=== PATIENT | male | born 1970 | race African-American/Black ===

== ENCOUNTER 2016-11-22 18:39 | Inpatient (IN) | payer OTHER ==
--- NOTE | ~2016-11-22 | PA ---
Unit #: [id number] #: [id number] Patient: BUCKY CASTRO [id number] [facility] [address] [place] [address] [id number] MR#: [id number] NAME: BUCKY CASTRO ROOM: P256 Age: 46 Sex: M Admission Date: 11/22/2016 : 1970 Date of Assessment: 11/23/2016 Attending Physician: Larry Boswell M.D. Admitting Physician: Larry Boswell M.D. Primary Care Physician: Generic Doctor Not In System PSYCHIATRIC ASSESSMENT DATE OF SERVICE 11/23/2016. INFORMANTS The patient, partially reliable; OLOP, reliable. CHIEF COMPLAINT Overdose. HISTORY OF PRESENT ILLNESS Bucky Castro is a 46-year-old man who [facility] taking an overdose of baclofen and gabapentin. He states that he was extremely out of pain due to back injury and also hit his head. He admitted to "some mild cocaine use." The patient was admitted to the hospital on a 72-hour hold 3 weeks ago after taking an overdose of other medications. He denied that this was a suicide attempt, but admitted feeling dysphoric. [facility] and [facility]. PAST PSYCHIATRIC HISTORY As noted, the patient has one recent admission to [facility] on a 72-hour hold following a polysubstance overdose. He currently is being seen at [facility] and takes Celexa 10 mg daily. FAMILY PSYCHIATRIC HISTORY None reported. SOCIAL HISTORY The patient has been off work for the last year due to back injury and is on disability. He is a high school graduate with some college. He is from his and is an [employer] . PAST MEDICAL HISTORY Significant for back pain, COPD, and hepatitis C. MEDICATIONS Please see MAR. ALLERGIES Morphine. SUBSTANCE ABUSE HISTORY Unit #: [id number] #: [id number] Patient: BUCKY CASTRO The patient admits to occasional cocaine use and maybe indulging overuse of recent medications. MENTAL STATUS EXAMINATION The patient presented as a neatly dressed and groomed man who appeared his stated age. Vital signs were blood pressure 133/82, respirations 18, and pulse 108. His speech was spontaneous and easily understood. Musculoskeletal examination was calm. His mood was irritable with a congruent affect. He was alert and fully oriented. Memory and concentration are intact. Thought processes were logical with no active psychosis. He denied this was a suicide attempt, but did admit to taking the overdose. Insight and judgment, fair. Fund of knowledge and abstraction, fair. ASSETS AND LIABILITIES The patient knows local resources and presents voluntarily for treatment. Liabilities include chronic back pain and disability status. ADMITTING DIAGNOSES AXIS I: Adjustment disorder with depressed mood, Ff3.21; rule out major depressive disorder. AXIS II: No diagnosis. AXIS III: Back pain, chronic obstructive pulmonary disease, hepatitis C. AXIS IV: AXIS V: PSYCHIATRIC PLAN The patient was admitted and placed on suicide precautions. He is agitated for immediate discharge, but was placed on a 72-hour hold in our [facility] due to his 2 recent overdoses. I explained to the patient that he would need to remain in the hospital at least today, but could be eligible for discharge tomorrow if he continues to be free of suicidal thinking. In the meantime, we will increase citalopram to 20 mg daily. Continue his home medications. Treatment goals are resolution of SI, improvement in insight, and improvement in coping skills. DISCHARGE PLANNING Follow up with [facility] or [facility]. ESTIMATED LENGTH OF STAY 5 days. Dictated by... Larry Boswell M.D. Ike/syd TD: 11/24/2016 00:36 JOB #: [id number] Unit #: [id number] #: [id number] Patient: BUCKY CASTRO PSYCHIATRIC ASSESSMENT Page 1 of 1 X Larry Boswell MD PSYCHIATRIC ASSESSMENT
--- NOTE | ~2016-11-22 | DS ---
Unit #: [id number] #: [id number] Patient: BUCKY CASTRO [id number] [facility] [address] [place] [address] [id number] MR#: [id number] NAME: BUCKY CASTRO ROOM: P256 Age: 46 Sex: M Admission Date: 11/22/2016 : 1970 Discharge Date: 11/24/2016 Attending Physician: Larry Boswell M.D. Primary Care Physician: Generic Doctor Not In System DISCHARGE SUMMARY REASON FOR ADMISSION Mr. Castro is a 46-year-old man, who presented after overdose of baclofen and gabapentin and had also been using cocaine. This was a repeat of an incident previously in the month, although he continued to deny that this was a suicide attempt. [facility]. DIAGNOSTIC STUDIES LABORATORY RESULTS: CBC demonstrated high WBCs of 11.0, low hematocrit of 12.8. CMP was within normal limits. Urine drug screen was positive for cocaine. HOSPITAL COURSE Mr. Castro was admitted and placed on suicide precautions. He remained in the hospital with an increase in his citalopram to 20 mg daily and was calm and cooperative with no parasuicidal behaviors or statements. On the date of discharge, he was able to contract for safety. DISCHARGE DIAGNOSES AXIS I: Adjustment disorder with depressed mood, F43.21. AXIS II: No diagnosis. AXIS III: Back pain, chronic obstructive pulmonary disease, hepatitis C. AXIS IV: AXIS V: DISCHARGE INSTRUCTIONS Follow up with primary care physician and with community mental health resources for psychiatric treatment. DISCHARGE MEDICATIONS Celexa 20 mg daily for depression, Cymbalta 30 mg daily for pain and depression, trazodone 100 mg at bedtime as needed for insomnia. CONDITION AT DISCHARGE Improved. PROGNOSIS Fair to good. DIET AND ACTIVITY Per primary care doctor. Unit #: [id number] #: [id number] Patient: BUCKY CASTRO Dictated by... Larry Boswell M.D. [facility]/arunl TD: 12/01/2016 02:01 JOB #: [id number] DISCHARGE SUMMARY Page 1 of 1 X Larry Boswell MD DISCHARGE SUMMARY
--- NOTE | ~2016-11-22 | HP ---
Unit #: [id number] #: [id number] Patient: BUCKY CASTRO [id number] [place] [address] [id number] MR#: [id number] NAME: BUCKY CASTRO ROOM: P256 Age: 46 Sex: M Admission Date: 11/22/2016 : 1970 Attending Physician: Larry Boswell M.D. Admitting Physician: Larry Boswell M.D. Primary Care Physician: Generic Doctor Not In System HISTORY AND PHYSICAL HISTORY OF PRESENT ILLNESS Bucky is a 46 year old admitted to [address] [place] [address] with depression and after a suicide attempt with an overdose. PAST MEDICAL HISTORY 1. COPD 2. Hepatitis C 3. Seizure disorder PAST SURGICAL HISTORY Nothing reported ALLERGIES Morphine (hives) SOCIAL HISTORY Smokes one-half pack per day. Drinks alcohol on occasion. Admits to a history of illicit drug use to include cocaine. FAMILY HISTORY Medically noncontributory. REVIEW OF SYSTEMS CONSTITUTIONAL: No fever or chills. HEENT: Denies any sore throat, ear pain or runny nose. CARDIOVASCULAR: Denies chest pain, irregular heart rhythm or palpitations. CHEST: Denies shortness of breath or cough. No hemoptysis. GASTROINTESTINAL: Denies nausea, vomiting, diarrhea or chronic constipation. ENDOCRINE: Denies history of increased thirst or urination. No recent significant weight loss or gain. GENITOURINARY: Denies dysuria, frequency, or hematuria. SKIN: Denies any rashes. HEMATOLOGIC: Denies history of increased bleeding or bruising. MUSCULOSKELETAL: Denies any hot, swollen joints. No generalized muscle pain. NEUROLOGIC: Denies problems with vision or speech. No frequent, severe headaches. No numbness, tingling or weakness in any extremities. Denies loss of bladder or bowel control. CURRENT MEDICATIONS Unit #: [id number] #: [id number] Patient: BUCKY CASTRO 1. Celexa 20 mg daily 2. Desyrel p.r.n. 3. Vistaril p.r.n. 4. Milk of Magnesia p.r.n. 5. Maalox p.r.n. 6. Tylenol p.r.n. 7. Maalox p.r.n. 8. Tylenol p.r.n. 9. Cymbalta 30 mg daily 10. Nicotine patch 14 mg daily PHYSICAL EXAMINATION GENERAL: Alert, obese, in no apparent distress. VITAL SIGNS: Blood pressure 112/80, heart rate 80, respirations 16, temperature 98.6. WEIGHT: 182 pounds. HEIGHT: 5'7". SKIN: Warm and dry without rash or lesion. HEENT: Normocephalic. TMs not viewed. Oral and nasal passages clear. Conjunctivae clear. Pupils equal, round and reactive to light and accommodation. Extraocular movements intact. NECK: Supple without lymphadenopathy or thyromegaly. HEART: Regular rate and rhythm without murmur. LUNGS: Clear. ABDOMEN: Soft, nontender. : Not done. EXTREMITIES: No evidence of cyanosis, clubbing or edema. Moves all extremities without focal deficit. NEUROLOGICAL: Grossly within normal limits. Cranial Nerves: II: Visual noble are intact. III, IV AND : Extraocular movements are intact. Pupils are equal, round and reactive to light. V: Facial sensation is grossly normal. VII: Facial movements and expression are normal. VIII: Auditory acuity grossly intact. IX, X: Uvula is midline. Phonation is normal. XI: Patient shrugs shoulders and turns head normally. XII: Tongue protrudes in the midline. Sensory and Motor Function: Sensory and motor sensation is grossly normal. Motor: moves all extremities well. Coordination: Gait is normal. Deep Tendon Reflexes: Intact. IMPRESSION Psychiatric admission RECOMMENDATIONS PSYCHIATRIC: Per psychiatrist. MEDICAL: I see no contraindications to participating in facility's activities. MEDICAL PROGNOSIS Good. MEDICAL CONDITION Stable. Unit #: [id number] #: [id number] Patient: BUCKY CASTRO Dictated by... Neida Escoto P.A.-C. for Sissy Macdonald/meghan TD: 11/23/2016 21:57 JOB #: [id number] HISTORY AND PHYSICAL Page 1 of 1 X Neida Escoto HISTORY AND PHYSICAL
[2016-11-23 09:31] LABS: BASOPHIL# 0.1 X10e3 (0-0.3); BASOPHIL% 0.6 % (0-2.5); EOSINOPHIL# 0.1 X10e3 (0-0.7); EOSINOPHIL% 0.5 % (0.0-7.0); HEMATOCRIT 39.7 % (38.0-50.0); HEMOGLOBIN 12.8 gm/dL (13.0-16.0); LYMPHOCYTE# 1.8 X10e3 (1.0-3.5); LYMPHOCYTE% 16.6 % (17.0-45.0); MEAN CELL VOLUME 85.9 FL (83-96); MEAN CORPUSCULAR HEMOGLOBIN 27.8 PG (28-34); MEAN CORPUSCULAR HGB CONC 32.3 g/dL (30-36); MEAN PLATELET VOLUME 7.8 FL (6.5-11.5); MONOCYTE# 1.2 X10e3 (0-1.0); MONOCYTE% 11.3 % (3.0-12.0); NEUTROPHIL# 7.8 X10e3 (1.5-7.1); PLATELET COUNT 322 X10e3 (140-420); RED BLOOD COUNT 4.62 X10e (3.90-5.60)
[2016-11-23 09:39] LABS: DIFF IND NO
[2016-11-23 09:53] LABS: ALBUMIN SERUM 3.7 g/dL (3.5-5.0); ALKALINE PHOSPHATASE 44 U/L (32-92); ALT (SGPT) 18 U/L (10-40); AST (SGOT) 38 U/L (10-42); BILIRUBIN,TOTAL 0.7 mg/dL (0.2-2.0); BLOOD UREA NITROGEN 5 mg/dL (9-23); CALCIUM SERUM 9.3 mg/dL (8.4-10.2); CARBON DIOXIDE 26 mmol/L (22-31); CHLORIDE 105 mmol/L (100-111); GLOM FILT RATE Estimated ABOVE60 mL/min (>60); GLUCOSE FASTING 87 mg/dL (70-110); POTASSIUM 4.3 mmol/L (3.5-5.1); PROTEIN TOTAL SERUM 6.5 g/dL (6.0-8.3); SODIUM 138 mmol/L (135-145)
[2016-11-23 12:58] LABS: URINE APPEARANCE CLEAR; URINE BILIRUBIN NEG (NEG); URINE BLOOD 2+ (NEG); URINE COLOR YELLOW; URINE GLUCOSE NEG (NEG); URINE KETONE NEG (NEG); URINE LEUKOCYTE ESTERASE NEG (NEG); URINE NITRATE NEG (NEG); URINE PROTEIN NEG (NEG); URINE SPECIFIC GRAVITY 1.018 (1.003-1.035); URINE UROBILINOGEN 0.2 MG/DL (NEG)
[2016-11-23 13:02] LABS: URINE BACTERIA AUWI NEG (NEGATIVE); URINE SQUAMOUS EPITHELIAL CELL NONE SEEN /[HPF]
[2016-11-23 13:51] LABS: AMPHETAMINE NEG (NEG); BARBITURATES NEG (NEG); BENZODIAZEPINES NEG (NEG); COCAINE POS (NEG); MARIJUANA NEG (NEG); OPIATES NEG (NEG); TRICYCLIC ANTIDEPRESSANTS NEG (NEG); U METHADONE NEG (NEG)
== END 2016-11-24 15:00 | disposition home or self-care (01) | DRG 881 ==
LOC: P2L 18:39
PROVIDERS: Psychiatry & Neurology Psychiatry
DX: F43.21 Adjustment disorder with depressed mood (principal); G40.909 Epilepsy, unspecified, not intractable, without status epilepticus; J44.9 Chronic obstructive pulmonary disease, unspecified; M54.9 Dorsalgia, unspecified; B19.20 Unspecified viral hepatitis C without hepatic coma; F17.210 Nicotine dependence, cigarettes, uncomplicated
CPT/HCPCS: 80053; 80307; 81003; 85025